=== PATIENT | male | born 1940 | race Caucasian/White ===

== ENCOUNTER 2017-02-17 08:43 | Observation (INO) | payer MEDICARE, BC ==
[2017-02-17] MEDS ORDERED: ONDANSETRON HCL IV 4 MG/2 ML VIAL IVP ONE (08:56)
[2017-02-17] MEDS ORDERED: MORPHINE SULFATE 5 MG/ML PFS IVP ONE ×2 (08:56→09:35)
--- NOTE | 2017-02-17 09:01 | Emergency Department Record ---
History of Present Illness - General Chief Complaint: Back Pain/Injury Stated Complaint: BACK PAIN Time Seen by Provider: 02/17/17 08:46 Source: Patient Mode of Arrival: Ambulatory Limitations: No limitations - History of Present Illness Initial Comments: 76 yo male presents with back pain for 2 weeks. The pain has been constant and gradually increasing. The pain is low lumbar with some left flank radiation. No leg radiation. No weakness, numbness or tingling. No urinary symptoms of retention or incontinence. No fever. No recent trauma. He saw his PCP Friday. He is taking Tylenol. No fevers chills or recent illness. No history of spine surgery. MD Complaint: Back pain, Back injury Onset/Timin -: Week(s) Similar Symptoms Previously: Yes Place: Home Radiation: None Severity: Mild Severity scale (1-10): 10 Quality: Aching Consistency: Constant Improves With: None Worsens With: Movement, Sitting upright, Supine, Walking Context: Turning/twisting, Other Associated Symptoms: Numbness Treatments Prior to Arrival: Acetaminophen - Related Data Home Medications Medication Instructions Recorded Confirmed Last Taken Lovastatin 40 mg PO QPM 04/13/14 02/17/17 02/17/17 Aspirin Chewable 81 mg PO DAILY 04/14/14 02/17/17 02/17/17 Lisinopril/Hydrochlorothiazide 1 each PO 02/17/17 02/17/17 02/17/17 [Lisinopril-Hctz 20-12.5 mg Tab] Allergies Allergy/AdvReac Type Severity Reaction Status Date / Time Penicillins Allergy Unknown HIVES Verified 04/14/14 11:29 Sulfa (Sulfonamide Allergy Unknown HIVES Verified 04/14/14 11:29 Antibiotics) Travel Screening - Travel/Exposure Within Last 30 Days Have you traveled within the last 30 days?: No - Travel/Exposure Within Last Year Have you traveled outside the [place] in the last year?: No - Additonal Travel Details Have you been exposed to anyone with a communicable illness?: No - Travel Symptoms Symptom Screening: None Review of Systems Constitutional: Denies: Chills, Fever, Malaise, Weakness Eyes: Denies: Eye discharge ENT: Denies: Congestion, Ear pain, Throat pain Respiratory: Denies: Cough Cardiovascular: Denies: Chest pain, Palpitations, Syncope Endocrine: Denies: Fatigue, Polydipsia, Polyuria Gastrointestinal: Denies: Abdominal pain, Diarrhea, Nausea, Vomiting Genitourinary: Denies: Frequency, Hematuria, Urgency Musculoskeletal: Reports: Back pain, Myalgia. Denies: Neck pain Skin: Denies: Bruising, Change in color, Rash Neurological: Denies: Abnormal gait, Headache, Numbness, Paresthesias, Tingling , Tremors, Vertigo, Weakness Psychiatric: Denies: Anxiety Hematological/Lymphatic: Denies: Blood Clots, Easy bleeding, Easy bruising, Swollen glands Past Medical History - SOCIAL HISTORY Smoking Status: Former smoker Alcohol Use: None Drug Use: None - RESPIRATORY Hx Respiratory Disorders: No - CARDIOVASCULAR Hx Cardio Disorders: Yes Hx Hypertension: Yes - NEURO Hx Neuro Disorders: No - GI Hx GI Disorders: Yes Comment:: colon polyps - Hx Genitourinary Disorders: No - ENDOCRINE Hx Endocrine Disorders: No - MUSCULOSKELETAL Hx Musculoskeletal Disorders: Yes Hx Arthritis: Yes (osteoarthritis right hip) - PSYCH Hx Psych Problems: No - HEMATOLOGY/ONCOLOGY Hx Hematology/Oncology Disorders: Yes Hx Blood Transfusions: Yes (left VAUGHN (2004)) Family Medical History Any Significant Family History?: No Physical Exam - General General Appearance: Alert, Oriented x3, Cooperative, No acute distress Limitations: No limitations - Head Head exam: Atraumatic, Normal inspection - Eye Eye exam: Normal appearance, PERRL. negative: Conjunctival injection, Periorbital swelling - ENT ENT exam: Normal exam, Mucous membranes moist Ear exam: Normal external inspection Nasal Exam: Normal inspection Mouth exam: Normal external inspection Teeth exam: Normal inspection Throat exam: Normal inspection - Neck Neck exam: Normal inspection - Respiratory Respiratory exam: Normal lung sounds bilaterally. negative: Respiratory distress - Cardiovascular Cardiovascular Exam: Regular rate, Normal rhythm, Normal heart sounds Peripheral Pulses: 2+: Radial (R), Radial (L) - GI/Abdominal GI/Abdominal exam: Soft. negative: Distended, Rebound, Rigid, Tenderness - Rectal Rectal exam: Deferred - exam: Deferred - Extremities Extremities exam: Normal inspection, Full ROM, Normal capillary refill. negative: Calf tenderness, Joint swelling, Pedal edema, Tenderness - Back Back exam: Reports: Normal inspection, CVA tenderness (L), Muscle spasm, Paraspinal tenderness (left lower), Tenderness, Vertebral tenderness. Denies: Full ROM, Rash noted - Neurological Neurological exam: Alert, Motor sensory deficit, Normal gait, Oriented X3. negative: Altered - Psychiatric Psychiatric exam: Normal affect, Normal mood. negative: Agitated, Anxious - Skin Skin exam: Dry, Intact, Normal color, Warm Course Vital Signs 02/17/17 08:46 Temperature 97.6 F Pulse Rate 66 Respiratory 24 Rate Blood Pressure 157/75 Pulse Ox 97 - Reevaluation(s) Reevaluation #1: The CT scan of the abdomen and pelvis was negative for any acute process. No AAA, no renal stones. Degenerative changes with spirring noted on the spine. 02/17/17 10:22 Reevaluation #2: The patient's results were reviewed with him He has had Morphine, Toradol, Valium, Solumedrol, Ofirmev and pain is not tolerable to stand I discussed possible need for admission Dr Powers was paged. 02/17/17 11:30 Reevaluation #3: The case was discussed with Dr Powers She accepts the patient for intractable back pain Admission orders placed 02/17/17 11:47 Medical Decision Making - Lab Data Result diagrams: 02/17/17 09:04 02/17/17 09:04 Disposition Disposition: Admit Clinical Impression: Intractable low back pain Disposition: Still a Patient at [facility] Decision to Admit: Admit from ER Decision to Admit Date: 02/17/17 Decision to Admit Time: 11:49 Condition: (1) Good Forms: Patient Portal Access Time of Disposition: 11:50
[2017-02-17 09:29] LABS: BASO % 0.8 % (0-6); EOS % 2.6 % (0-6); GRAN % 64.6 % (47-80); HEMATOCRIT 40.1 % (42.0-52.0); HEMOGLOBIN 13.6 gm/dl (14.0-18.0); LYMPH % 24.3 % (16-45); MEAN CORPUSCULAR HGB CONC 33.9 g/dl (32-36); MEAN PLATELET VOLUME 10.9 fl (7.4-10.4); MONO % 7.7 % (0-9); PLATELET COUNT 265 K/uL (130-400); RED BLOOD COUNT 4.36 M/uL (4.40-5.70); RED CELL DISTRIBUTION WIDTH 12.6 % (11.5-14.5); WHITE BLOOD COUNT W/O DIFF 5.3 K/uL (4.2-12.2)
[2017-02-17 09:40] LABS: MEAN CORPUSCULAR HEMOGLOBIN 31.1 pg (27-33)
[2017-02-17 09:43] LABS: ALB/GLOB RATIO 1.3 (1.1-1.8); ALBUMIN 4.7 gm/dL (3.5-5.0); ALKALINE PHOSPHATASE 72 U/L (38-126); ALT/SGPT 41 U/L (21-72); ANION GAP 7.6 (7-16); AST/SGOT 26 U/L (17-59); BILIRUBIN,TOTAL 1.05 mg/dL (0.2-1.3); BLOOD UREA NITROGEN 20 mg/dL (9-20); CARBON DIOXIDE 23.4 mmol/L (22-30); EST GLOMERULAR FILTRATION RATE > 60 ml/min; GLUCOSE,RANDOM 125 mg/dL (70-110); TOTAL PROTEIN 8.3 gm/dL (6.3-8.2)
[2017-02-17] MEDS ORDERED: ACETAMINOPHEN 1,000 MG/100 ML BTL IVPB ONE (09:56)
[2017-02-17] MEDS ORDERED: KETOROLAC 30 MG/ML VIAL IVP ONE (09:56)
[2017-02-17] MEDS ORDERED: DIAZEPAM 5 MG/1 ML TUBX IVP ONE (10:04)
[2017-02-17] MEDS ORDERED: METHYLPREDNISOLONE PF 125MG/VIAL IVP SCH (10:30)
[2017-02-17 10:53] LABS: URINE APPEARANCE CLEAR; URINE BILIRUBIN NEGATIVE (NEGATIVE); URINE BLOOD NEGATIVE (NEGATIVE); URINE COLOR YELLOW; URINE GLUCOSE (UA) NEGATIVE (NEGATIVE); URINE KETONE NEGATIVE (NEGATIVE); URINE LEUKOCYTE ESTERASE NEGATIVE (NEGATIVE); URINE NITRITE NEGATIVE (NEGATIVE); URINE PROTEIN NEGATIVE (NEGATIVE); URINE UROBILINOGEN 0.2 E.U./dL (0.20 - 1.00)
[2017-02-17] MEDS ORDERED: ACETAMINOPHEN 500 MG TABLET PO PRN (12:54)
[2017-02-17] MEDS: MORPHINE SULFATE 5 MG/ML PFS IVP PRN ×2 (13:25→20:11)
[2017-02-17] MEDS: KETOROLAC 30 MG/ML VIAL IVP PRN ×2 (15:13→23:37)
[2017-02-17] MEDS: DIAZEPAM 5 MG/1 ML TUBX IVP PRN (17:03)
[2017-02-18] MEDS: MORPHINE SULFATE 5 MG/ML PFS IVP PRN ×3 (00:15→14:51)
[2017-02-18] MEDS: DIAZEPAM 5 MG/1 ML TUBX IVP PRN ×2 (02:34→10:43)
--- NOTE | 2017-02-18 07:17 | CT SCAN REPORT ---
EXAM: CT OF THE ABDOMEN AND PELVIS WITHOUT CONTRAST HISTORY: BACK PAIN. TECHNIQUE: CT of the abdomen and pelvis was performed without oral or IV contrast which limits evaluation of bowel and solid visceral organs. Comparison: Prior CT from 01/27/06. FINDINGS: Limited evaluation of the lung bases is unremarkable. The osseous structures are grossly intact. Limited evaluation of the liver, spleen, adrenal glands, and pancreas is unremarkable. Cholelithiasis. Bilateral renal cysts are suggested. Multiple calcifications associated with each kidney which are likely vascular. No obstructing calculus or hydronephrosis. Streak artifact from bilateral hip prostheses limits evaluation of the pelvis. Subjective urinary bladder wall thickening. Sigmoid diverticulosis without CT evidence for diverticulitis. Ectasia of the infrarenal abdominal aorta measuring 2.7 x 2.4 cm. Normal appendix. No free air or free fluid. Fat containing inguinal hernias. A portion of the urinary bladder herniates into the right inguinal hernia canal. IMPRESSION: 1. NO HYDRONEPHROSIS OR DEFINITIVE URINARY TRACT CALCULUS. VASCULAR CALCIFICATIONS ASSOCIATED WITH EACH KIDNEY. 2. CHOLELITHIASIS. 3. BILATERAL RENAL CYSTS. 3. EXTENSIVE ATHEROMATOUS CHANGE. 4. SIGMOID DIVERTICULOSIS. NO CT EVIDENCE FOR DIVERTICULITIS. 5. HERNIATION OF A PORTION OF THE URINARY BLADDER INTO THE RIGHT INGUINAL CANAL. JOB NUMBER: [id number] MTDD
[2017-02-18] MEDS ORDERED: POLYETHYLENE GLY 17 GM PACKET PO ONE (09:37)
[2017-02-18] MEDS ORDERED: MAGNESIUM HYDROXIDE 30 ML UDC PO ONE (09:37)
[2017-02-18] MEDS ORDERED: ENOXAPARIN 40 MG/0.4 ML SYR SQ SCH (10:00)
--- NOTE | 2017-02-18 10:01 | History & Physical ---
History of Present Illness - Date of Service Date of Service for History & Physical: 02/18/17 - History of Present Illness Admitting Diagnosis: intractable back pain History of Present Illness: 76yo male with CC of severe low back pain. He has a history of HTN, osteoarthritis with b/l hip replacements and was a former smoker. 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 He tried some otc tylenol but pain continued to progress. Yesterday morning while eating breakfast he stated his back just locked up and he couldn't move at all. [place] like his back was "catching." He was unable to stand or walk and had to call a ride to bring him in to the ED. While in the ED, patient had unremarkable CBC and CMP. UA was negative for infection or blood. CT abdomen and pelvis without contrast showed no evidence of stone, hydronephrosis, AAA, or dissection. There were gall stones noted but no acute changes in either the abdomen or pelvis. Patient received morpine, valium, toradol with minimal improvement of his pain and continued inability to bear weight or ambulate. he was admitted for intractable low back pain. 02/18/17- Today patient states he is feeling better. He says his pain is down from a 12 to a 4-5. He says it is still low left sided tightness that is sharp with movement. he was able to work with PT this morning. Was up and ambulating with walker. Patient states the valium and toradol have been controlling his pain. Has not needed morphine since last night. He is feeling a little constipated today, but no pain with urination. no bowel or bladder incontinence. no numbness, tingling or weakness of the lower extremities. No trauma or recent infection. He would really like to get home today. He does not have a walker at home. PCP: Kathya Travel Screening - Travel/Exposure Within Last 30 Days Have you traveled within the last 30 days?: No - Travel/Exposure Within Last Year Have you traveled outside the [place] in the last year?: No - Additonal Travel Details Have you been exposed to anyone with a communicable illness?: No - Travel Symptoms Symptom Screening: None Review of Systems Constitutional: Denies: Chills, Fever, Malaise, Weakness Eyes: Denies: Eye discharge ENT: Denies: Congestion, Ear pain, Throat pain Respiratory: Denies: Cough Cardiovascular: Denies: Chest pain, Palpitations, Syncope Endocrine: Denies: Fatigue, Polydipsia, Polyuria Gastrointestinal: Denies: Abdominal pain, Diarrhea, Nausea, Vomiting Genitourinary: Denies: Frequency, Hematuria, Urgency Musculoskeletal: Reports: Back pain, Myalgia. Denies: Neck pain Skin: Denies: Bruising, Change in color, Rash Neurological: Denies: Abnormal gait, Headache, Numbness, Paresthesias, Tingling , Tremors, Vertigo, Weakness Psychiatric: Denies: Anxiety Hematological/Lymphatic: Denies: Blood Clots, Easy bleeding, Easy bruising, Swollen glands Past Medical History - SOCIAL HISTORY Smoking Status: Former smoker Alcohol Use: None Drug Use: None - RESPIRATORY Hx Respiratory Disorders: No - CARDIOVASCULAR Hx Cardio Disorders: Yes Hx Hypertension: Yes - NEURO Hx Neuro Disorders: No - GI Hx GI Disorders: Yes Comment:: colon polyps - Hx Genitourinary Disorders: No - ENDOCRINE Hx Endocrine Disorders: No Hx Diabetes: No Hx Thyroid Disease: No - MUSCULOSKELETAL Hx Musculoskeletal Disorders: Yes Hx Arthritis: Yes (osteoarthritis right hip) - PSYCH Hx Psych Problems: No - HEMATOLOGY/ONCOLOGY Hx Hematology/Oncology Disorders: Yes Hx Blood Transfusions: Yes (left VAUGHN (2004)) Family Medical History Any Significant Family History?: Yes Hx Diabetes: Father H&P Meds/Allergies - Allergies Allergies: Allergies Allergy/AdvReac Type Severity Reaction Status Date / Time Penicillins Allergy Unknown HIVES Verified 04/14/14 11:29 Sulfa (Sulfonamide Allergy Unknown HIVES Verified 04/14/14 11:29 Antibiotics) - Home Medications Home Medications Medication Instructions Recorded Confirmed Last Taken Lovastatin 40 mg PO QPM 04/13/14 02/17/17 02/17/17 Aspirin Chewable 81 mg PO DAILY 04/14/14 02/17/17 02/17/17 Lisinopril/Hydrochlorothiazide 1 each PO DAILY 02/17/17 02/17/17 02/17/17 [Lisinopril-Hctz 20-12.5 mg Tab] - Active Medications Active Medications: Current Medications Acetaminophen (Tylenol 500mg Tab) 1,000 mg PO Q6H PRN PRN Reason: PAIN/TEMP Diazepam (Valium) 2 mg IVP Q8H PRN PRN Reason: Pain - General Last Admin: 02/18/17 02:34 Dose: 2 mg Enoxaparin Sodium (Lovenox) 40 mg SQ DAILY SUELLEN Ketorolac Tromethamine (Toradol) 15 mg IVP Q8H PRN PRN Reason: Pain - General Last Admin: 02/17/17 23:37 Dose: 15 mg Magnesium Hydroxide (Milk Of Magnesium) 30 ml PO NOW ONE Stop: 02/18/17 09:38 Morphine Sulfate (Morphine Sulfate) 5 mg IVP Q4HR PRN PRN Reason: Pain - General Stop: 02/24/17 12:55 Last Admin: 02/18/17 05:29 Dose: 5 mg Polyethylene Glycol (Miralax) 17 gm PO NOW ONE Stop: 02/18/17 09:38 Physical Exam - Vital Signs Vital Signs: Vital Signs - Last 24 Hrs Temp Pulse Pulse Pulse Resp BP Pulse Ox 02/18/17 05:50 97.7 F 62 16 141/67 94 L 02/17/17 21:30 97.9 F 58 L 18 132/69 94 L 02/17/17 12:55 20 02/17/17 12:54 97.8 F 88 20 136/86 96 - General General Appearance: Alert, Oriented x3, Cooperative, No acute distress Limitations: No limitations - Head Head exam: Atraumatic, Normal inspection - Eye Eye exam: Normal appearance, PERRL. negative: Conjunctival injection, Periorbital swelling - ENT ENT exam: Normal exam, Mucous membranes moist Ear exam: Normal external inspection Nasal Exam: Normal inspection Mouth exam: Normal external inspection Teeth exam: Normal inspection Throat exam: Normal inspection - Neck Neck exam: Normal inspection - Respiratory Respiratory exam: Normal lung sounds bilaterally. negative: Respiratory distress - Cardiovascular Cardiovascular Exam: Regular rate, Normal rhythm, Normal heart sounds Peripheral Pulses: 2+: Radial (R), Radial (L) - GI/Abdominal GI/Abdominal exam: Soft. negative: Distended, Rebound, Rigid, Tenderness - Rectal Rectal exam: Deferred - exam: Deferred - Extremities Extremities exam: Normal inspection, Full ROM, Normal capillary refill. negative: Calf tenderness, Joint swelling, Pedal edema, Tenderness - Back Back exam: Reports: Normal inspection, CVA tenderness (L), Muscle spasm, Paraspinal tenderness (left lower), Tenderness. Denies: Full ROM, Rash noted, Vertebral tenderness - Neurological Neurological exam: Abnormal gait (antalgic; walking with a walker), Alert, CN II -XII intact, Oriented X3, Reflexes normal. negative: Altered - Psychiatric Psychiatric exam: Normal affect, Normal mood. negative: Agitated, Anxious - Skin Skin exam: Dry, Intact, Normal color, Warm Results - Labs Result Diagrams: 02/17/17 09:04 02/17/17 09:04 - Imaging and Cardiology CT scan - abdomen Status: Report reviewed (no acute abdominal or pelvic process) VTE H&P Assessment - Risk for VTE Risk for VTE: Yes Risk Level: High Risk Assessment Date: 02/18/17 Risk Assessment Time: 11:02 VTE Orders Placed or Will Be Placed: Yes Plan - Inpatient Certification Inpatient Certification: Admit to inpatient care: Based on my medical assessment, after consideration of patient's risk factors (age, co-morbidities and patient presenting symptoms and acuity), I expect that this patient will remain in the hospital greater than or equal to two midnights and that the services needed warrant inpatient care because: Patient Risk Factors: [] Estimated length of stay: [] The patient may reasonably be expected to be discharged or transferred to a hospital within 96 hours after admission to [facility]. Services needed: [] Post hospital care (if known): [] I certify that my determination is in accordance with my understanding of Medicare requirements for reasonable and necessary inpatient services. - Detailed Diagnosis and Plan (1) Intractable low back pain Current Visit: Yes Status: Acute Base Code: M54.5 - LOW BACK PAIN Comment : 02/18/17- Improved. Pain down from a 10 to a 4-5. Toradol and valium seem to be controlling pain. He has been up [facility] PT this morning and is able to safely ambulate. Ct abdomen/pelvis negative for an acute process. -will continue to treat acute paraspinous spasm with NSAIDs and muscle relaxer -will consult SW to discuss home health services for PT/OT and nurse aid -will write script for walker (2) Full code status Current Visit: Yes Status: Acute Base Code: Z78.9 - OTHER SPECIFIED HEALTH STATUS Comment: 02/18/17- Patient is full code (3) DVT prophylaxis Current Visit: Yes Status: Acute Base Code: [id number] - Comment: 02/18/17- Patient is at high risk with age -will encourage ambulation wtih PT - lovenox 40mg sq daily for prophylaxis
[2017-02-18] MEDS: KETOROLAC 30 MG/ML VIAL IVP PRN (10:02)
--- NOTE | 2017-02-18 10:33 | Rehab Evaluation ---
Patient Information - Patient Information Diagnosis: Low back pain Ordered Treatment: PT Evaluate and Treat Status: Initial Evaluation Surgery: No History: Detail (The patient presented to ED on 02/17 with L sided lower back pain and difficulty walking due to pain. The patient was admitted to inpatient floor.) Past Medical/Surgical Hx: PAST MEDICAL/SURGICAL HISTORY Past Surgical History Jamie. Hernia (Inguinal x2), C-scope, Left VAUGHN( 2004)right VAUGHN PMH - Respiratory Hx Respiratory Disorders No PMH - Cardiovascular Hx Cardiovascular Disorders Yes Hx Hypertension Yes PMH - Neuro Hx Neurological Disorders No PMH - GI Hx Gastrointestinal Disorders Yes Comment: colon polyps PMH - Hx Genitourinary Disorders No PMH - Endocrine Hx Endocrine Disorders No Hx Diabetes No Hx Thyroid Disease No PMH - Musculoskeletal Hx Musculoskeletal Disorders Yes Hx Arthritis Yes: osteoarthritis right hip PMH - Psych Hx Psychiatric Problems No PMH - Hematology/Oncology Hx Hematology/Oncology Yes Disorders Premorbid Status: Detail (The patient was ambulatory with a standard cane and independent with all mobility.) Social History: Detail (The patient lives alone in a one story home with 2 steps at one enterance with one railing. The patient's home is equipped with a tub/shower combination and standard toilet with grab bars by both toilet and tub. The patient completes all elementary secretary indpendently since both [place] Precautions: [place] - Time With Patient Total Time Spent With Patient (Min): 30 Treatment Procedures: Detail (Initial Evaluation, Manual Therapy techniques.) Subjective Information - Subjective Information Per Patient (The patient complains of level 5 L sided back and SI region pain. The patient reports he felt a pop when he turning while mowing the lawn. The patient reports his back pain was so severe later that he could not walk. The patient complains of numbness in both feet that he has intermittently for awhile.) Objective Data - Pain Pain Present: Yes Pain Intensity: 5 Pain Scale Used: Numeric (1 - 10) - Mental Status Patient Orientation: Oriented x3 - Visual Perception Appears within normal limits for therapeutic activities - ROM Not within normal limits (Limited lumbar mobility noted with guarded movements. Lumbar mobility was not tested secondary to pain complaints.) - Strength/Tone Other (LE strength testing was deferred secondary to pain level.) - Bed Mobility Independent (Independent with supine to sit and rolling however movements were guarded.) - Transfers Independent (Independent sit to stand, with gaurded movements.) - Balance Balance Sitting: Good Balance Standing: Fair (The patient used standard cane for support. The patient 's balance was not formally tested.) - Gait Detail (The patient ambulated with standard cane a distance of 22 feet x1, independently with guarded gait pattern.) - Special Tests Yes (Alignment: The patient presented with L sacral rotation and L ilium upslip. Palpation: Muscular tightness was noted L quadratus lumborum and Piriformis. Tenderness was also noted in the L SI region. Posture: Decreased lumbar lordosis, rounded shoulders, forward head.) Therapy Assessment - Therapy Assessment Detail (The patient presents with sacral and pelvic asymmetry and Lumbar muscular tightness. The patient is independent with mobility with gaurded movements. PT completed MET correction of L SI rotation and L upslip and MFR of quadratus lumborum, piriformis and grade 1 sacral mobilization techniques. The patient's pain was reduced to level 3 following manual therapy techniques. Ongoing PT either home or outpatient for treatment of patient's back and core strengthening, lumbar stretching exercises is recommended.) Problem List - Problem List Physical Therapy Problem List: Detail (1) Gaurded mobility due to back pain 2) Lumbar muscular tightness 3) Sacral/ilium asymmetry) Goals - Goals Physical Therapy Goals: 1) Decrease Lumbar pain to level 2 at the highest. 2) Decrease Lumbar muscular tightness by 50% to allow the patient to complete with mobility with less pain. 3) The patient will complete all mobility without guarded movements. 4) The patient will maintain alignment x 1 week. Prognosis - Prognosis Good Plan - Plan Physical Therapy Plan: PT M-F daily for manual therapy, therapuetic exercise until discharge from [facility]. Outpatient or home PT is recommended upon discharge for ongoing treatment of the patient's back.
--- NOTE | 2017-02-18 13:16 | Discharge Summary ---
Providers Discharge Summary Date: 02/18/17 Date of admission: 02/17/17 12:26 Expected Date of Discharge: 02/18/17 Attending physician: EYAL OCASIO Primary care physician: Kali Rasheed Physical Exam - Vital Signs Vital Signs: Vital Signs - Last 24 Hrs Temp Pulse Pulse Resp BP Pulse Ox 02/18/17 09:00 16 02/18/17 05:50 97.7 F 62 16 141/67 94 L 02/17/17 21:30 97.9 F 58 L 18 132/69 94 L - General General Appearance: Alert, Oriented x3, Cooperative, No acute distress Limitations: No limitations - Head Head exam: Atraumatic, Normal inspection - Eye Eye exam: Normal appearance, PERRL. negative: Conjunctival injection, Periorbital swelling - ENT ENT exam: Normal exam, Mucous membranes moist Ear exam: Normal external inspection Nasal Exam: Normal inspection Mouth exam: Normal external inspection Teeth exam: Normal inspection Throat exam: Normal inspection - Neck Neck exam: Normal inspection - Respiratory Respiratory exam: Normal lung sounds bilaterally. negative: Respiratory distress - Cardiovascular Cardiovascular Exam: Regular rate, Normal rhythm, Normal heart sounds Peripheral Pulses: 2+: Radial (R), Radial (L) - GI/Abdominal GI/Abdominal exam: Soft. negative: Distended, Rebound, Rigid, Tenderness - Rectal Rectal exam: Deferred - exam: Deferred - Extremities Extremities exam: Normal inspection, Full ROM, Normal capillary refill. negative: Calf tenderness, Joint swelling, Pedal edema, Tenderness - Back Back exam: Reports: Normal inspection, CVA tenderness (L), Muscle spasm, Paraspinal tenderness (left lower), Tenderness. Denies: Full ROM, Rash noted, Vertebral tenderness - Neurological Neurological exam: Abnormal gait (antalgic; walking with a walker), Alert, CN II -XII intact, Oriented X3, Reflexes normal. negative: Altered - Psychiatric Psychiatric exam: Normal affect, Normal mood. negative: Agitated, Anxious - Skin Skin exam: Dry, Intact, Normal color, Warm Hospitalization - Hospitalization Admission Diagnosis: intractable back pain - Problem List/Discharge Diagnosis (1) Intractable low back pain Status: Acute Base Code: M54.5 - LOW BACK PAIN Comment: 02/18/17- Improved. Pain down from a 10 to a 4-5. Toradol and valium seem to be controlling pain. He has been up [facility] this morning and is able to safely ambulate with walker. Ct abdomen/pelvis negative for an acute process. -plan to discharge home today. Patient has filled out [facility] family practice intake form and we will call him to schedule follow up in the next 1-2 weeks -will continue to treat acute paraspinous spasm with NSAIDs and muscle relaxer. Naproxen 250mg po bid prn and valium 5mg po qhs prn sent to pharmacy. - SW consulted and has set up home health. Patient will have home pt/ot and nursing -wrote script for walker and patient recieved prior to discharge. (2) Full code status Status: Acute Base Code: Z78.9 - OTHER SPECIFIED HEALTH STATUS Comment: 02/18- Patient is full code (3) DVT prophylaxis Status: Acute Base Code: [id number] - Comment: 02/18/17- Patient is at high risk with age -will encourage ambulation wt PT - lovenox 40mg sq daily for prophylaxis - Hospitalization Course Disposition: Home, Self-Care Condition at Discharge: (2) Stable Discharge Medications - Discharge Medications Prescriptions: Diazepam [Valium] 5 mg PO QHS PRN #15 tab PRN Reason: spasm Naproxen [Naprosyn] 250 mg PO Q12H PRN #20 tablet PRN Reason: Pain - Moderate (5-7) Home Medications: Ambulatory Orders Lovastatin 40 mg PO QPM 04/13/14 [Last Taken 02/17/17] Aspirin Chewable 81 mg PO DAILY 04/14/14 [Last Taken 02/17/17] Lisinopril/Hydrochlorothiazide [Lisinopril-Hctz 20-12.5 mg Tab] 1 each PO DAILY 02/17/17 [Last Taken 02/17/17] Diazepam [Valium] 5 mg PO QHS PRN #15 tab 02/18/17 [Last Taken Unknown] Naproxen [Naprosyn] 250 mg PO Q12H PRN #20 tablet 02/18/17 [Last Taken Unknown] Discharge Plan - Discharge Instructions Activity at Discharge: As Per Physical Therapy Diet at Discharge: Regular Diet Instructions: Naproxen (By mouth), Diazepam (By mouth), Low Back Strain (DC), Acute Low Back Pain (DC) Additional Instructions: 2 Activity: As Per Physical Therapy 2 Diet: Regular Diet 2 Consults: [Home health services have been set up and they should be contacting you to set up first visit] 2 Follow Up: [The [facility] Family Practice will be contacting you to schedule a follow up appointment within the next 2 weeks] 2 Dressing/Wound Care: (Type) (Change) 2 Additional: [] Continue home medications May take the Naprosyn 250mg up to twice daily as needed for moderate to severe pain. Please do not take any other NSAIDs like ibuprofen, motrin, or alleve while taking this medication. Please discontinue this medication if you begin to have heartburn, black or bloody stools and contact our office right away May take the Valium 5mg at bedtime as needed for muscle spasm. Do not drive while taking this medication. Do not combine with alcohol as risk for respiratory depression and even can be increased.
== END 2017-02-18 15:05 | disposition home or self-care (01) ==
LOC: ER 08:43 → INTOOBSV 12:26 → MEDSURG 12:26
PROVIDERS: ADMIT Family Medicine; ATTEND Family Medicine
DX: M54.5 Low back pain (principal); I10 Essential (primary) hypertension; Z78.9 Other specified health status
CPT/HCPCS: 99285 ×2; 96376; 96374; 96375; 85025; 80053; 81003; 74176; G0378 ×2; J1885 ×2; J2405; J2270 ×2; G8978; G8979; G8980; 99220; J1650; J2930; J3360